=== PATIENT | female | born 1975 | race Caucasian/White ===

== ENCOUNTER 2023-09-20 10:41 | Inpatient (IN) | payer BC, OTHER ==
[~2023-09-20] VITALS: Ht 177.8 cm; Wt 149.7 kg
[2023-09-20] MEDS ORDERED: LISI1TAB55 PO (11:06)
[2023-09-20] MEDS ORDERED: AMIT50TA3 PO (11:06)
[2023-09-20] MEDS ORDERED: PRAZ2CAP2 PO (11:06)
[2023-09-20] MEDS ORDERED: ESTR1TAB17 PO (11:06)
[2023-09-20] MEDS ORDERED: BUPR150T10 PO (11:06)
[2023-09-20] MEDS ORDERED: LEVE500T9 PO (11:06)
[2023-09-20] MEDS ORDERED: HYDR50CA5 PO (11:06)
[2023-09-20 11:37] LABS: *BLOOD, URINE 3+ (NEGATIVE); *CLARITY,URINE SLIGHTLY CLOUDY (CLEAR); *COLOR,URINE YELLOW (YELLOW); *KETONES,URINE TRACE (NEGATIVE); *PROTEIN,URINE NEGATIVE (NEGATIVE); LEUKOCYTE ESTERASE ,URINE TRACE (NEGATIVE); NITRITE, URINE NEGATIVE (NEGATIVE); PH,URINE 5.5 (5.0-8.0); UGLUCOSE NEGATIVE (NEGATIVE)
[2023-09-20 11:41] LABS: *BILIRUBIN,URIN 1+ (NEGATIVE)
[2023-09-20 11:47] LABS: BASOPHILS # (AUTO) 0.1 K/UL (0.0-0.2); BASOPHILS % (AUTO) 0.9 % (0.0-2.0); EOSINOPHILS # (AUTO) 0.1 K/uL (0.0-0.7); HEMATOCRIT 40.4 % (31.2-41.9); HEMOGLOBIN 13.3 g/dL (10.9-14.3); LYMPHOCYTES # (AUTO) 1.2 K/uL (0.8-4.8); MEAN CORPUSCULAR HEMOGLOBIN 28.2 uug (24.7-32.8); MEAN CORPUSCULAR HGB CONC 33 g/dL (32.3-35.6); MEAN CORPUSCULAR VOLUME 85.7 fL (75.5-95.3); MONOCYTES # (AUTO) 0.6 K/uL (0.1-1.30); NEUTROPHILS # (AUTO) 4.2 K/uL (1.8-8.9); NEUTROPHILS % (AUTO) 69.1 % (38.5-71.5); PLATELET COUNT (AUTO) 244 K/uL (179-408); RED BLOOD CELL COUNT(AUTO) 4.71 MIL/uL (3.63-4.92); RED CELL DISTRIBUTION WIDTH 13.8 % (12.3-17.7); WHITE BLOOD COUNT (AUTO) 6.1 K/uL (3.8-11.8)
[2023-09-20 11:51] LABS: BACTERIA,URINE MANY /HPF (NONE SEEN); SQUAMOUS EPITHELIAL CELL,UR MODERATE /HPF (NONE SEEN); YEAST,URINE BUDDING YEAST /HPF (NONE SEEN)
[2023-09-20 11:55] LABS: CALCIUM 9.2 mg/dL (8.5-10.1); CARBON DIOXIDE 27 mmol/L (21-32); CHLORIDE 101 mmol/L (98-107); CREATININE 1.3 mg/dL (0.6-1.3); DIFFERENTIAL COMMENT 1; GLUCOSE 120 mg/dL (74-106); POTASSIUM 4.3 mmol/L (3.5-5.1); SODIUM SERUM 137 mmol/L (136-145); UREA NITROGEN, BLOOD 22 mg/dL (7-18)
[2023-09-20 12:00] LABS: *AMPHETAMINE, URINE NEGATIVE (NEGATIVE); *BARBITURATE, URINE NEGATIVE (NEGATIVE); *BENZODIAZEPINE, URINE NEGATIVE (NEGATIVE); *CANNABINOID, URINE NEGATIVE (NEGATIVE); *COCCAINE, URINE NEGATIVE (NEGATIVE); *OPIATE, URINE NEGATIVE (NEGATIVE); *PHENCYCLIDINE SCREEN,URINE NEGATIVE (NEGATIVE); FENTANYL, URINE NEGATIVE (NEGATIVE)
[2023-09-20 12:04] LABS: ALANINE AMINOTRANSFERASE 45 U/L (14-59); ALBUMIN 3.7 g/dL (3.4-5.0); ALKALINE PHOSPHATASE 119 U/L (50-136); AMMONIA 14 umol/L (11-32); ASPARTATE AMINOTRANSFERASE 29 U/L (15-37); BILIRUBIN,DIRECT 0.2 mg/dL (0.0-0.2); BILIRUBIN,TOTAL 0.5 mg/dL (0.2-1.0); TOTAL PROTEIN, SERUM 8.3 g/dL (6.4-8.2)
[2023-09-20 12:23] LABS: ACETAMINOPHEN < 2.0 ug/mL (10-30)
[2023-09-20 12:35] LABS: ETHANOL < 3 MG/DL (0-10)
[2023-09-20 18:22] VITALS: BP 96/57; TEMP 97.5; O2SAT 95
[2023-09-20] MEDS ORDERED: AMITRIPTYLINE HCL 50 MG TABLET PO SCH (19:15)
[2023-09-20] MEDS ORDERED: levETIRAcetam 500 MG TABLET PO SCH (19:15)
[2023-09-20] MEDS: FLUCONAZOLE 200 MG/NS 100ML IV 100 MG in PREMIXED 1 EACH IV ONE ×2 (19:16→21:56)
[2023-09-20] MEDS ORDERED: LORAZEPAM 2 MG/1 ML VIAL IV PRN (19:30)
[2023-09-20] MEDS ORDERED: ACETAMINOPHEN 325 MG TABLET PO PRN (19:30)
[2023-09-20] MEDS ORDERED: CEFTRIAXONE 1 G in IV DEXTROSE 5% 50 ML IV SCH (19:30)
[2023-09-20] MEDS ORDERED: MAGNESIUM HYDROXIDE 30 ML LIQUID UDC PO PRN (19:30)
[2023-09-20] MEDS ORDERED: HYDROCODONE/APAP 5-325MG TABLET PO PRN (19:30)
[2023-09-20] MEDS ORDERED: TEMAZEPAM 15 MG CAPSULE PO PRN (19:30)
[2023-09-20] MEDS ORDERED: CEFTRIAXONE /D5W 50ML IVPB **ER PYXIS IV ONE (20:38)
[2023-09-20] MEDS ORDERED: FLUCONAZOLE 200 MG/100 ML PIGGYBACK ONE (20:38)
[2023-09-20 20:48] VITALS: BP 111/60; TEMP 97.9; O2SAT 95
[2023-09-20] MEDS: AMITRIPTYLINE HCL 50 MG TABLET PO SCH (20:57)
[2023-09-20] MEDS: levETIRAcetam 500 MG TABLET PO SCH (20:57)
[2023-09-20] MEDS: IV NS 1000 ML 1,000 ML IV PRN (20:57)
[2023-09-20] MEDS: CEFTRIAXONE 1 G in IV DEXTROSE 5% 50 ML IV SCH (21:11)
[2023-09-20] MEDS ORDERED: PRAZOSIN HCL 1 MG CAPSULE ONE (21:53)
[2023-09-20] MEDS: PRAZOSIN HCL 1 MG CAPSULE PO SCH (21:59)
[2023-09-21 00:19] VITALS: BP 98/58; TEMP 97.8; O2SAT 95
[2023-09-21] MEDS ORDERED: AMITRIPTYLINE HCL 50 MG TABLET PO SCH ×3 (05:40→21:00)
[2023-09-21] MEDS ORDERED: TEMAZEPAM 7.5 MG CAPSULE PO PRN (06:00)
[2023-09-21] MEDS: PANTOPRAZOLE SODIUM 40 MG TABLET.DR PO SCH (06:12)
[2023-09-21 06:22] VITALS: BP 105/55; TEMP 97.7; O2SAT 95
[2023-09-21 07:05] LABS: BASOPHILS % (AUTO) 0.6 % (0.0-2.0); EOSINOPHILS # (AUTO) 0.1 K/uL (0.0-0.7); EOSINOPHILS % (AUTO) 2.5 % (0.0-7.0); HEMATOCRIT 38.8 % (31.2-41.9); HEMOGLOBIN 12.8 g/dL (10.9-14.3); LYMPHOCYTES # (AUTO) 1.3 K/uL (0.8-4.8); MEAN CORPUSCULAR HEMOGLOBIN 28.2 uug (24.7-32.8); MEAN CORPUSCULAR HGB CONC 33 g/dL (32.3-35.6); MEAN CORPUSCULAR VOLUME 85.7 fL (75.5-95.3); MONOCYTES # (AUTO) 0.5 K/uL (0.1-1.30); MONOCYTES % (AUTO) 11.5 % (0.0-11.0); NEUTROPHILS # (AUTO) 2.8 K/uL (1.8-8.9); NEUTROPHILS % (AUTO) 58.4 % (38.5-71.5); PLATELET COUNT (AUTO) 206 K/uL (179-408); RED BLOOD CELL COUNT(AUTO) 4.53 MIL/uL (3.63-4.92); WHITE BLOOD COUNT (AUTO) 4.7 K/uL (3.8-11.8)
[2023-09-21 07:17] LABS: DIFFERENTIAL COMMENT 1
[2023-09-21 07:18] LABS: ALANINE AMINOTRANSFERASE 43 U/L (14-59); ALBUMIN 3.1 g/dL (3.4-5.0); ALKALINE PHOSPHATASE 102 U/L (50-136); ASPARTATE AMINOTRANSFERASE 22 U/L (15-37); BILIRUBIN,TOTAL 0.3 mg/dL (0.2-1.0); CALCIUM 8.4 mg/dL (8.5-10.1); CARBON DIOXIDE 27 mmol/L (21-32); CHLORIDE 102 mmol/L (98-107); CHOLESTEROL 179 mg/dL (<200); CREATININE 1.1 mg/dL (0.6-1.3); GLUCOSE 111 mg/dL (74-106); HDL CHOLESTEROL 57 mg/dL (40-60); MAGNESIUM 2.3 mg/dL (1.8-2.4); PHOSPHOROUS 3.9 mg/dL (2.5-4.9); POTASSIUM 4.2 mmol/L (3.5-5.1); SODIUM SERUM 137 mmol/L (136-145); TOTAL PROTEIN, SERUM 7.4 g/dL (6.4-8.2); TRIGLYCERIDES 101 MG/DL (30-150); UREA NITROGEN, BLOOD 20 mg/dL (7-18)
[2023-09-21 07:24] LABS: IRON, SERUM 70 ug/dL (50-175)
[2023-09-21 07:26] LABS: THYROID STIMULATING HORMONE 2.539 mIU/mL (0.358-3.740)
[2023-09-21 07:45] VITALS: BP 105/64; TEMP 97.5; O2SAT 96
[2023-09-21] MEDS: ESTRADIOL 1 MG TABLET PO SCH (08:24)
[2023-09-21] MEDS: CEFTRIAXONE 2 G in IV DEXTROSE 5% 100 ML IV SCH (08:25)
[2023-09-21] MEDS ORDERED: buPROPion XL 150 MG TAB.SR.24H PO SCH ×2 (09:00)
[2023-09-21] MEDS ORDERED: buPROPion SR 150 MG TABLET.SA PO SCH (09:00)
[2023-09-21 11:45] VITALS: BP 99/54; TEMP 97.5; O2SAT 95
[2023-09-21 16:00] VITALS: BP 132/68; TEMP 98.4; O2SAT 99
[2023-09-21 20:00] VITALS: BP 118/79; TEMP 97.6; O2SAT 96
[2023-09-22 06:00] VITALS: BP 91/54; TEMP 97.7; O2SAT 96
== END 2023-09-22 11:45 | disposition home or self-care (01) | DRG 101 ==
LOC: ER 10:41 → TELE3 17:20 → MEDSURG3 09-21 09:55
PROVIDERS: ADMIT Internal Medicine; ATTEND Internal Medicine
DX: R56.9 Unspecified convulsions (principal); B37.49 Other urogenital candidiasis; Z68.42 Body mass index [BMI] 45.0-49.9, adult; N17.9 Acute kidney failure, unspecified; R55 Syncope and collapse; E66.01 Morbid (severe) obesity due to excess calories; I10 Essential (primary) hypertension; Z85.42 Personal history of malignant neoplasm of other parts of uterus; Z90.710 Acquired absence of both cervix and uterus; F19.11 Other psychoactive substance abuse, in remission; I95.9 Hypotension, unspecified; F41.9 Anxiety disorder, unspecified; F32.A Depression, unspecified; F51.4 Sleep terrors [night terrors]; N93.9 Abnormal uterine and vaginal bleeding, unspecified
CPT/HCPCS: 36415; 70450; 71045; 72125; 83550; 83605; 83735; 84100; 84443; 84484; 85025; 85730; 87040; 93005; A4606; A4663; G0378; G0480; J0696; J1450; J7040